=== PATIENT | male | born 1985 | race Caucasian/White ===

== ENCOUNTER → 2017-11-19 | Outpatient (CLI) | payer BC ==
--- NOTE | 2017-11-19 13:17 | US ---
EXAMINATION TYPE: US kidneys/renal and bladder DATE OF EXAM: 11/19/2017 COMPARISON: NONE CLINICAL HISTORY: R31.0 Gross hematuria. gross hematuria almost every month since May 2017 EXAM MEASUREMENTS: Right Kidney: 13.2 x 7.1 x 6.9 cm Left Kidney: 13.0 x 5.4 x 5.9 cm Right Kidney: No hydronephrosis or masses seen Left Kidney: No hydronephrosis or masses seen Bladder: wnl Bilateral Jets seen: yes There is no evidence for hydronephrosis at this point in time. No nephrolithiasis is seen. No aleksandar s are identified. The urinary bladder is anechoic. Bilateral ureteral jets are seen. IMPRESSION: No sonographic evidence of nephrolithiasis or hydronephrosis. Considering the patient's s ymptoms of persistent gross hematuria CT urogram could BE performed.
== END | disposition home or self-care (01) ==
LOC: RADUSWWP 12:03
PROVIDERS: ATTEND Family Medicine
DX: R31.0 Gross hematuria (principal)
CPT/HCPCS: 76770

== ENCOUNTER → 2022-04-10 | Outpatient (CLI) | payer BC ==
--- NOTE | 2022-04-10 13:09 | CT ---
EXAMINATION TYPE: CT urogram wo/w con CT DLP: 4335 mGycm, Automated exposure control for dose reduction was used. DATE OF EXAM: 04/10/2022 12:41 PM COMPARISON: CT abdomen pelvis most recent from CLINICAL INDICATION:Male, 36 years old with history of HEMATURIA R31.0, hematuria TECHNIQUE: Urogram with imaging of the abdomen and pelvis. Coronal and sagittal reformats were performed. 2D and 3D reconstructions are performed to assist visualization of the urinary tract on a separate workstat ion. Contrast used:100 mL of Isovue 300 without and with IV Contrast, Oral contrast used: None. FINDINGS: GENITOURINARY: RIGHT KIDNEY AND URETER: Nonobstructing renal calculi measuring up to 7 mm with 2 smaller calculi als o present. No hydronephrosis or hydroureter. No renal mass or other lesions. No urothelial lesions: n o filling defect, dilation, stricture or wall thickening. LEFT KIDNEY AND URETER: Nonobstructing 7 mm calculus No hydronephrosis or hydroureter. No renal mass or other lesions. No urothelial lesions: no filling defect, dilation, stricture or wall thickening. URINARY BLADDER: Not optimally distended. Limited evaluation secondary to partial filling of the blad cresencio with excreted IV contrast. No calculi or obvious mass. REPRODUCTIVE: Unremarkable. ABDOMEN LIVER: Unremarkable. GALLBLADDER AND BILE DUCTS: Unremarkable PANCREAS: Unremarkable. SPLEEN: Unremarkable. ADRENAL GLANDS: Unremarkable. STOMACH AND BOWEL: . No evidence of bowel obstruction. PERITONEUM: No evidence of pneumoperitoneum, free fluid, or adenopathy. VASCULATURE: No aortic aneurysm. MUSCULOSKELETAL: No acute osseous abnormalities. SOFT TISSUE/ABDOMINAL WALL: Unremarkable. LOWER CHEST: No significant findings. IMPRESSION: 1. No evidence of urolithiasis or renal/urothelial neoplasm. 2. Nonobstructive bilateral renal calculi.
--- NOTE | 2022-04-10 13:16 | US ---
EXAMINATION TYPE: US venous doppler duplex LE LT DATE OF EXAM: 04/10/2022 12:38 PM COMPARISON: NONE CLINICAL HISTORY: R22.40 SWELLING, MASS AND LUMP LOWER LIMB. h/o ACL tear 3 years ago, swelling to le ft leg, no h/o dvt SIDE PERFORMED: Left TECHNIQUE: The lower extremity deep venous system is examined utilizing real time linear array sonog lizet with graded compression, doppler sonography and color-flow sonography. VESSELS IMAGED: Common Femoral Vein Deep Femoral Vein Greater Saphenous Vein * Femoral Vein Popliteal Vein Small Saphenous Vein * Proximal Calf Veins (* superficial vessels) Left Leg: Negative for DVT Grayscale, color doppler, spectral doppler imaging performed of the deep veins of the lower extremiti es. There is normal flow, compressibility, vascular waveforms. IMPRESSION: No evidence of deep vein thrombosis of the left lower extremity.
== END | disposition home or self-care (01) ==
LOC: RADCTMAIN 10:38
PROVIDERS: ATTEND Family Medicine
DX: R31.0 Gross hematuria (principal); R22.40 Localized swelling, mass and lump, unspecified lower limb
CPT/HCPCS: 93971; 74178; 74400; Q9967

== ENCOUNTER 2022-05-14 13:30 | Emergency (ER) | payer BC ==
[2022-05-14 13:42] VITALS: RESP 18; TEMP 98.3
[2022-05-14] MEDS ORDERED: SODIUM CHLORIDE 0.9% 2,000 ML IV STA (13:45)
[2022-05-14 14:49] LABS: Appearance,Urine Clear (Clear); Bilirubin,Urine Negative (Negative); Blood,Urine Negative (Negative); Color,Urine Yellow; Glucose,Urine (UA) Negative (Negative); Ketones,Urine Trace (Negative); Leukocyte Esterase,Urine Trace (Negative); Mucus,Urine Rare /hpf; Nitrite,Urine Negative (Negative); PH, Urine 5.5 (5.0-8.0); Protein,Urine Trace (Negative); RBC,Urine 2 /hpf (0-5); Specific Gravity,Urine 1.023 (1.001-1.035); Urobilinogen,Urine <2.0 mg/dL (<2.0); WBC,Urine 5 /hpf (0-5)
[2022-05-14 14:53] LABS: Basophils # (A) 0.1 k/uL (0-0.2); Basophils % (A) 1 %; Eosinophils # (A) 0.1 k/uL (0-0.7); Eosinophils % (A) 1 %; HCT 45.1 % (39.0-53.0); HGB 16.3 gm/dL (13.0-17.5); Lymphocytes # (A) 1.4 k/uL (1.0-4.8); Lymphocytes % (A) 10 %; MCH 30.1 pg (25.0-35.0); MCHC 36.1 g/dL (31.0-37.0); MCV 83.5 fL (80.0-100.0); Mean Platelet Volume 7.2; Monocytes # (A) 0.7 k/uL (0-1.0); Monocytes % (A) 5 %; Neutrophils # (A) 11.2 k/uL (1.3-7.7); Neutrophils % (A) 82 %; Platelet Count 277 k/uL (150-450); RDW 12.2 % (11.5-15.5); WBC 13.6 k/uL (3.8-10.6)
[2022-05-14 15:07] LABS: ALT 48 U/L (4-49); AST 39 U/L (17-59); African American GFR (CKD) >90 (>60 ml/min/1.73 sqM); Albumin 4.9 g/dL (3.5-5.0); Alkaline Phosphatase 62 U/L (38-126); Amylase 80 U/L (30-110); Anion Gap 14 mmol/L; Blood Urea Nitrogen 15 mg/dL (9-20); Calcium 9.3 mg/dL (8.4-10.2); Carbon Dioxide 20 mmol/L (22-30); Chloride 105 mmol/L (98-107); Glucose 96 mg/dL (74-99); Lipase 208 U/L (23-300); Non-African American GFR(CKD) >90 (>60 ml/min/1.73 sqM); Potassium 3.9 mmol/L (3.5-5.1); Sodium 139 mmol/L (137-145); Total Bilirubin 1.7 mg/dL (0.2-1.3); Total Protein 7.9 g/dL (6.3-8.2)
--- NOTE | 2022-05-14 15:23 | ED ---
Abdominal Pain HPI - General Chief Complaint: Abdominal Pain Stated Complaint: possible bowel obstruction Time Seen by Provider: 05/14/22 13:45 Source: patient, RN notes reviewed Mode of arrival: ambulatory Limitations: no limitations - History of Present Illness Initial Comments: 36-year-old male presents emergency Department chief complaint of abdominal pain. Patient states he was seen at outpatient urgent care and was sent here for further evaluation. Patient states he's had diarrhea for 5 days states she's been having increasing abdominal pain, bloating. Patient was sent here for concern for bowel obstruction. Patient had no prior abdominal surgeries denies any recent antibiotics no recent traveling no contacts with some her symptoms. Patient does admit to nausea without vomiting. He states he has severe loose liquidy stool. Patient has no dysuria no reported fevers. - Related Data Previous Rx's Medication Instructions Recorded Amoxic-Pot Clav 875-125Mg 1 tab PO Q12HR #20 tab 05/14/22 [Augmentin 875-125] Allergies Allergy/AdvReac Type Severity Reaction Status Date / Time No Known Allergies Allergy Verified 05/14/22 14:11 Review of Systems ROS Statement: Those systems with pertinent positive or pertinent negative responses have been documented in the HPI. ROS Other: All systems not noted in ROS Statement are negative. Past Medical History Additional Past Medical History / Comment(s): high liver enzymes, kidney stones, ulcers History of Any Multi-Drug Resistant Organisms: None Reported Past Surgical History: No Surgical Hx Reported Smoking Status: Never smoker Past Alcohol Use History: None Reported Past Drug Use History: None Reported General Exam General appearance: alert, in no apparent distress Head exam: Present: atraumatic, normocephalic, normal inspection Eye exam: Present: normal appearance, PERRL, EOMI. Absent: scleral icterus, conjunctival injection, periorbital swelling Neck exam: Present: normal inspection. Absent: tenderness, meningismus, lymphadenopathy Respiratory exam: Present: normal lung sounds bilaterally. Absent: respiratory distress, wheezes, rales, rhonchi, stridor Cardiovascular Exam: Present: regular rate, normal rhythm, normal heart sounds. Absent: systolic murmur, diastolic murmur, rubs, gallop, clicks GI/Abdominal exam: Present: soft, tenderness, normal bowel sounds. Absent: distended, guarding, rebound, rigid Neurological exam: Present: alert Skin exam: Present: warm, dry, intact, normal color. Absent: rash Course Vital Signs 05/14/22 13:35 Temperature 98.3 F Pulse Rate 97 Respiratory 18 Rate Blood Pressure 123/83 O2 Sat by Pulse 99 Oximetry Medical Decision Making - Medical Decision Making 36-year-old presented for diarrhea, seizures or obstruction patient has colitis type changes patient is well-hydrated, feels improved with IV fluids we discharged in stable condition return parameters were discussed. - Lab Data Result diagrams: 05/14/22 14:50 05/14/22 14:50 Lab Results 05/14/22 05/14/22 05/14/22 Range/Units 14:26 14:50 14:50 WBC 13.6 H (3.8-10.6) k/uL RBC 5.40 (4.30-5.90) m/uL Hgb 16.3 (13.0-17.5) gm/dL Hct 45.1 (39.0-53.0) % MCV 83.5 (80.0-100.0) fL MCH 30.1 (25.0-35.0) pg MCHC 36.1 (31.0-37.0) g/dL RDW 12.2 (11.5-15.5) % Plt Count 277 (150-450) k/uL MPV 7.2 Neutrophils % 82 % Lymphocytes % 10 % Monocytes % 5 % Eosinophils % 1 % Basophils % 1 % Neutrophils # 11.2 H (1.3-7.7) k/uL Lymphocytes # 1.4 (1.0-4.8) k/uL Monocytes # 0.7 (0-1.0) k/uL Eosinophils # 0.1 (0-0.7) k/uL Basophils # 0.1 (0-0.2) k/uL Sodium 139 (137-145) mmol/L Potassium 3.9 (3.5-5.1) mmol/L Chloride 105 (98-107) mmol/L Carbon Dioxide 20 L (22-30) mmol/L Anion Gap 14 mmol/L BUN 15 (9-20) mg/dL Creatinine 1.03 (0.66-1.25) mg/dL Est GFR (CKD-EPI)AfAm >90 (>60 ml/min/1.73 sqM) Est GFR (CKD-EPI)NonAf >90 (>60 ml/min/1.73 sqM) Glucose 96 (74-99) mg/dL Plasma Lactic Acid Addy (0.7-2.0) mmol/L Calcium 9.3 (8.4-10.2) mg/dL Total Bilirubin 1.7 H (0.2-1.3) mg/dL AST 39 (17-59) U/L ALT 48 (4-49) U/L Alkaline Phosphatase 62 (38-126) U/L Total Protein 7.9 (6.3-8.2) g/dL Albumin 4.9 (3.5-5.0) g/dL Amylase 80 (30-110) U/L Lipase 208 (23-300) U/L Urine Color Yellow Urine Appearance Clear (Clear) Urine pH 5.5 (5.0-8.0) Ur Specific [place] 1.023 (1.001-1.035) Urine Protein Trace H (Negative) Urine Glucose (UA) Negative (Negative) Urine Ketones Trace H (Negative) Urine Blood Negative (Negative) Urine Nitrite Negative (Negative) Urine Bilirubin Negative (Negative) Urine Urobilinogen <2.0 (<2.0) mg/dL Ur Leukocyte Esterase Trace H (Negative) Urine RBC 2 (0-5) /hpf Urine WBC 5 (0-5) /hpf Urine Mucus Rare H (None) /hpf 05/14/22 Range/Units 14:50 WBC (3.8-10.6) k/uL RBC (4.30-5.90) m/uL Hgb (13.0-17.5) gm/dL Hct (39.0-53.0) % MCV (80.0-100.0) fL MCH (25.0-35.0) pg MCHC (31.0-37.0) g/dL RDW (11.5-15.5) % Plt Count (150-450) k/uL MPV Neutrophils % % Lymphocytes % % Monocytes % % Eosinophils % % Basophils % % Neutrophils # (1.3-7.7) k/uL Lymphocytes # (1.0-4.8) k/uL Monocytes # (0-1.0) k/uL Eosinophils # (0-0.7) k/uL Basophils # (0-0.2) k/uL Sodium (137-145) mmol/L Potassium (3.5-5.1) mmol/L Chloride (98-107) mmol/L Carbon Dioxide (22-30) mmol/L Anion Gap mmol/L BUN (9-20) mg/dL Creatinine (0.66-1.25) mg/dL Est GFR (CKD-EPI)AfAm (>60 ml/min/1.73 sqM) Est GFR (CKD-EPI)NonAf (>60 ml/min/1.73 sqM) Glucose (74-99) mg/dL Plasma Lactic Acid Addy 1.2 (0.7-2.0) mmol/L Calcium (8.4-10.2) mg/dL Total Bilirubin (0.2-1.3) mg/dL AST (17-59) U/L ALT (4-49) U/L Alkaline Phosphatase (38-126) U/L Total Protein (6.3-8.2) g/dL Albumin (3.5-5.0) g/dL Amylase (30-110) U/L Lipase (23-300) U/L Urine Color Urine Appearance (Clear) Urine pH (5.0-8.0) Ur Specific [place] (1.001-1.035) Urine Protein (Negative) Urine Glucose (UA) (Negative) Urine Ketones (Negative) Urine Blood (Negative) Urine Nitrite (Negative) Urine Bilirubin (Negative) Urine Urobilinogen (<2.0) mg/dL Ur Leukocyte Esterase (Negative) Urine RBC (0-5) /hpf Urine WBC (0-5) /hpf Urine Mucus (None) /hpf Disposition Clinical Impression: Colitis Disposition: HOME SELF-CARE Condition: Stable Instructions (If sedation given, give patient instructions): Colitis (ED) Additional Instructions: Please return to the Emergency Department if symptoms worsen or any other concerns. Prescriptions: Amoxic-Pot Clav 875-125Mg [Augmentin 875-125] 1 tab PO Q12HR #20 tab Is patient prescribed a controlled substance at d/c from ED?: No Referrals: Manolo Schmidt DO [Primary Care Provider] - 1-2 days Time of Disposition: 15:40
--- NOTE | 2022-05-14 15:27 | CT ---
EXAMINATION TYPE: CT abdomen pelvis w con DATE OF EXAM: 05/14/2022 COMPARISON: CT urogram April 10, 2022 HISTORY: lower pelvic pain, possible bowel blockage CT DLP: 2021.1 mGycm, Automated Exposure Control for Dose Reduction was Utilized. CONTRAST: CT scan of the abdomen and pelvis is performed without oral and with IV Contrast, patient injected wi th 100 mL of Isovue 300. FINDINGS: LUNG BASES: No significant abnormality is appreciated. LIVER/GB: No significant abnormality is appreciated. PANCREAS: No significant abnormality is seen. SPLEEN: No significant abnormality is seen. ADRENALS: No significant abnormality is seen. KIDNEYS: Stable 7 mm nonobstructing calculus lower pole right kidney axial image 59. Stable 2 to 3 mm calculus midpole right kidney axial image 53. Stable 8 mm calculus lower pole level left kidney axia l image 59. There is symmetric cortical uptake and excretion without hydronephrosis seen bilaterally. BOWEL: Suboptimal evaluation of bowel without enteric contrast. No suspicious small or large bowel d ilatation. Some fluid throughout the colon is present greatest in the right colon. Findings could ref lect product of a mild colitis and/or diarrhea. Terminal ileum appears within normal limited coronal image 48. Stomach poorly distended and thus suboptimally evaluated. PROSTATE/SEMINAL VESICLES: No gross abnormality seen. LYMPH NODES: No greater than 1cm abdominal or pelvic lymph nodes are appreciated. Some prominent but subcentimeter lymph nodes throughout the mesentery are redemonstrated. OSSEOUS STRUCTURES: Oagn-gs-mekxnhgs disc space narrowing and vacuum disc phenomenon L3-L4 and L5-S1 levels. OTHER: No significant additional abnormality is seen. IMPRESSION: Possible mild uncomplicated colitis and/or diarrhea. No bowel obstruction. Otherwise no n ew or acute findings are evident.
[2022-05-14 15:56] VITALS: BP 122/75; PULSE 89
== END 2022-05-14 15:56 | disposition home or self-care (01) ==
LOC: EC 13:30
DX: K52.9 Noninfective gastroenteritis and colitis, unspecified (principal)
CPT/HCPCS: 36415; 80053; 82150; 83605; 83690; 85025; 81001; 87324; 74177; 99284; 96360; Q9967

== ENCOUNTER → 2022-06-09 | Outpatient (CLI) | payer BC ==
[2022-06-09 15:31] LABS: Basophils # (A) 0.08 X 10*3/uL (0.00-0.10); Basophils % (A) 1.1 %; Eosinophils # (A) 0.23 X 10*3/uL (0.04-0.35); Eosinophils % (A) 3.1 %; HCT 44.7 % (39.6-50.0); HGB 15.1 g/dL (13.0-17.0); Immature Grans, Automated 0.3 %; Lymphocytes # (A) 2.64 X 10*3/uL (0.90-5.00); MCH 29.5 pg (27.0-32.0); MCHC 33.8 g/dL (32.0-37.0); MCV 87.3 fL (80.0-97.0); Mean Platelet Volume 9.6 fL (9.5-12.2); Monocytes # (A) 0.58 X 10*3/uL (0.20-1.00); Monocytes % (A) 7.9 %; NRBC Per 100 WBC 0 /100 WBCS (0.0-0.0); Neutrophils # (A) 3.79 X 10*3/uL (1.80-7.70); Neutrophils % (A) 51.6 %; Platelet Count 279 X 10*3/uL (140-440); RBC 5.12 X 10*6/uL (4.40-5.60); WBC 7.34 X 10*3/uL (4.50-10.00)
[2022-06-09 15:42] LABS: Appearance,Urine Clear (Clear); Bilirubin,Urine Negative (Negative); Blood,Urine Negative (Negative); Color,Urine Yellow (Yellow); Ketones,Urine Negative (Negative); Nitrite,Urine Negative (Negative); PH, Urine 5.5 (5.0-8.0); Specific Gravity,Urine 1.022 (1.001-1.030); Urobilinogen,Urine 0.2 (0.2,1.0)
[2022-06-09 16:23] LABS: African American GFR (CKD) 111.7 (60.0-200.0); Anion Gap 15.8 mmol/L (10.00-18.00); BUN/Creat Ratio 14.5 Ratio (12.00-20.00); Blood Urea Nitrogen 14.5 mg/dL (9.0-27.0); Calcium 9.8 mg/dL (8.7-10.3); Carbon Dioxide 26.2 mmol/L (20.0-27.5); Non-African American GFR(CKD) 96.4 (60.0-200.0)
== END | disposition home or self-care (01) ==
LOC: LABPAT 08:41
PROVIDERS: ATTEND Urology
DX: Z01.818 Encounter for other preprocedural examination (principal); Z01.812 Encounter for preprocedural laboratory examination; N20.0 Calculus of kidney
CPT/HCPCS: 36415; 80048; 81003; 85025; 87086

== ENCOUNTER 2022-06-13 09:33 | Day surgery (SDC) | payer BC ==
[2022-06-10 15:15] VITALS: BMI 35.9
--- NOTE | 2022-06-13 07:51 | P.HPIHPCON ---
History of Present Illness H&P Date: 06/13/22 Chief Complaint: bilateral renal stone this is a 36 yo male with hx of bilateral renal stone, he underwent a CT that showed evidence of a 7 mm right-sided lower pole stone, an 8 mm left-sided lower pole stone. He is symptomatic from his stone, and is having recurrent gross hematuria. Discussed with him the option of doing a cystoscopy with bilateral ureteroscopy with holmium laser in the OR to assess for his gross hematuria and address his stones. Discussed with him the risk of surgery which includes but not limited to bleeding, infection, injury to the ureter. Discussed also risk from anesthesia. Discussed also been given the lower pole location it might be difficult to remove stones. He understood all the risk and agreed to proceed with a bilateral ureteroscopy, with holmium laser lithotripsy, stone basketing and stent insertion Consent for Procedure: I have explained the operation/procedure to the patient, including the risks, benefits, side effects, alternative therapies (including not receiving the proposed treatment or service), the likelihood of the patient achieving his/her goals, and potential recuperation problems for the procedure/sedation/analgesia, as well as any blood products, if indicated. I also explained to the patient the risks, benefits and side effects of the alternatives, as well as the risks related to not receiving the proposed procedure, care, treatment, or services. Past Medical History Additional Past Medical History / Comment(s): high liver enzymes, kidney stones, ulcers History of Any Multi-Drug Resistant Organisms: None Reported Past Surgical History: No Surgical Hx Reported Additional Past Surgical History / Comment(s): surgical repair of lip,wisdom teeth Past Anesthesia/Blood Transfusion Reactions: No Reported Reaction Additional Past Anesthesia/Blood Transfusion Reaction / Comment(s): no hx blood transfusion Smoking Status: Never smoker - Past Family History Mother Family Medical History: Cancer Additional Family Medical History / Comment(s): lupus,female ca Medications and Allergies Home Medications Medication Instructions Recorded Confirmed Type Acetaminophen [Tylenol Extra 500 - 1,000 mg PO Q6H PRN 06/10/22 06/10/22 History Strength] Ibuprofen [Motrin Ib] 200 mg PO Q8H PRN 06/10/22 06/10/22 History Melatonin 5 mg PO HS 06/10/22 06/10/22 History Allergies Allergy/AdvReac Type Severity Reaction Status Date / Time No Known Allergies Allergy Verified 06/10/22 15:08 Surgical - Exam - General no distress, moderate pain - Eyes no normal ocular movement, no pale - ENT normal nares, normal mucosa - Respiratory normal expansion, normal respiratory effort - Abdomen Abdomen: soft, non tender - Psychiatric oriented to time, oriented to person, oriented to place Assessment and Plan Assessment: OR for bilateral ureteroscopy, holmium laser lithotripsy, stone basketing and stent insertion
[~2022-06-13 09:33] MED LIST: DEXAMETHASONE SOD PHOSPHATE 4 MG/ML 1 ML VIAL IV ONE; HYDROmorphone 0.5 MG/0.5 ML SYRINGE IVP PRN; LACTATED RINGERS 1,000 ML IV SCH; ONDANSETRON 4 MG/2 ML VIAL IVP ONE; ceFAZolin 3 GM in SODIUM CHLORIDE 0.9% 100 ML IVPB PRN
--- NOTE | 2022-06-13 10:07 | XR ---
EXAMINATION TYPE: XR KUB DATE OF EXAM: 06/13/2022 9:43 AM INDICATION: Patient age:Male; 36 years old; Reason for study: kidney stones; [facility]. COMPARISON: CT 05/14/2022 TECHNIQUE: One radiographic view of the abdomen was obtained. FINDINGS: Calcifications project over the right kidney measuring up to 6 mm and over the left kidney measuring up to 5.5 mm. There is a nonspecific bowel gas pattern. Osseous structures appear intact. IMPRESSION: Bilateral renal calculi. Similar to prior CT 05/14/2022
[2022-06-13] MEDS ORDERED: MIDAZOLAM 2 MG/2 ML VIAL ONE (13:36)
[2022-06-13] MEDS ORDERED: SUCCINYLCHOLINE CHLORIDE 200 MG/10 ML VIAL IV ONE (13:36)
[2022-06-13] MEDS ORDERED: LIDOCAINE 2% INJ 20 MG/ML (2 ML VIAL) ONE (13:36)
[2022-06-13] MEDS ORDERED: fentaNYL (PF) 50 MCG/ML 2 ML AMP ONE (13:36)
[2022-06-13] MEDS ORDERED: PROPOFOL 10 MG/ML 20 ML VIAL IV ONE (13:36)
[2022-06-13] MEDS ORDERED: LACTATED RINGERS 1,000 ML IV ONE (14:08)
--- NOTE | 2022-06-13 15:02 | P.OP ---
Date of Procedure: 06/13/22 Preoperative Diagnosis: Bilateral renal stones Postoperative Diagnosis: Same Procedure(s) Performed: Cystoscopy, bilateral ureteroscopy, holmium laser lithotripsy, stone basketing and stent insertion Implants: 6-Greek by 28 cm stent bilaterally both left on a string Anesthesia: BALA Surgeon: Martin Todd Estimated Blood Loss (ml): 20 Pathology: other (bilateral renal stone) Condition: stable Indications for Procedure: this is a 36 yo male with hx of bilateral renal stone, he underwent a CT that showed evidence of a 7 mm right-sided lower pole stone, an 8 mm left-sided lower pole stone. He is symptomatic from his stone, and is having recurrent gross hematuria. Discussed with him the option of doing a cystoscopy with bilateral ureteroscopy with holmium laser in the OR to assess for his gross hematuria and address his stones. Discussed with him the risk of surgery which includes but not limited to bleeding, infection, injury to the ureter. Discussed also risk from anesthesia. Discussed also been given the lower pole location it might be difficult to remove stones. He understood all the risk and agreed to proceed with a bilateral ureteroscopy, with holmium laser lithotripsy, stone basketing and stent insertion Operative Findings: Bilateral renal stones, 2 stones in the right kidney, and one additional stone on the left Description of Procedure: Patient brought to the operating room, general anesthesia was induced. He was prepped and draped in sterile fashion and placed in a dorsal lithotomy position. Cystoscopy fitted with 21-Greek sheath was inserted per urethra, cystoscopy was performed of the bladder which showed no abnormality within the bladder. There was no suspicious lesions to account for the patient's hematuria. There was clear effluxed from both ureteral orifice ease. This time attention was then carried to the right ureteral orifice which was intubated with a sensor wire. Next a wire was advanced under fluoroscopy into the kidney. Next under fluoroscopy 1113 Greek access sheath was passed over the wire and into the proximal ureter. Next a flexible ureteroscope was inserted through the access sheath, renoscopy was performed which showed 2 large stones within the kidney one in the mid pole and additional one in the lower pole. Using the holmium lasers the stone were dusted, sizable fragments were removed using the stone basket. Repeat renoscopy showed no sizable fragments within the kidney or injury to the kidney. Pullback ureteroscopy was performed which showed no injury to the ureter or any ureteral stones, as ureteroscope was withdrawn, a sensor wire was advanced through. Next a ureteral stent was passed over the wire, the proximal curl was visualized on fluoroscopy and distal cural was visualized using the cystoscope. The stent was left on a string. Attention was then carried to the left side ureteral orfice which was intubated with a sensor wire. Next under fluoroscopy an 1113 Greek access sheath was passed over the wire and into the proximal ureter. Next a flexible ureteroscope was inserted through the access sheath, renoscopy was performed which showed a large stone within the lower pole. Using the stone basket the stone was repositioned into the upper pole. Using the holmium laser the stone was dusted. Sizable fragments were removed and sent for analysis. Repeat renoscopy showed no evidence of sizable fragments within the kidney or abnormality or injury to the kidney. Pullback ureteroscopy was performed showed no injury to the ureter or any ureteral stones, as the ureteroscope was withdrawn,a sensor wire was adva nced through. Next a 6-Greek by 28 cm ureteral stent was passed over the wire and into the kidney. The proximal curl was visualized on fluoroscopy and the distal curl was visualized using the cystoscope. The bladder was emptied at the end of the case. The left stent was also left on a string, the strings of the stent were taped to the patient penis. Patient awakened from anesthesia and taken to recovery in stable condition
[2022-06-13 15:03] VITALS: TEMP 98.5
[2022-06-13] MEDS ORDERED: KETOROLAC 15 MG/ML 1 ML VIAL IVP ONE (15:19)
[2022-06-13 15:34] VITALS: RESP 18
[2022-06-13 15:48] VITALS: BP 145/87; PULSE 87
--- NOTE | 2022-06-15 22:39 | FL ---
EXAMINATION TYPE: FL guidance operating room DATE OF EXAM: 06/13/2022 CLINICAL HISTORY: Bilateral kidney stones. TECHNIQUE: Fluoroscopy. COMPARISON: Same-day abdominal x-ray. FINDINGS: Fluoroscopic guidance was provided during kidney stone treatment procedure performed by Dr Zainab Wise. A total of 47 seconds of fluoroscopic time was utilized during the procedure and 3 spot im ages was acquired. Please refer to procedure note for further details. IMPRESSION: As Above.
== END 2022-06-13 16:15 | disposition home or self-care (01) ==
LOC: OR 09:33
PROVIDERS: ATTEND Urology
DX: N20.0 Calculus of kidney (principal); R94.5 Abnormal results of liver function studies; K27.9 Peptic ulcer, site unspecified, unspecified as acute or chronic, without hemorrhage or perforation; Z98.890 Other specified postprocedural states; Z79.899 Other long term (current) drug therapy; Z84.89 Family history of other specified conditions
CPT/HCPCS: 52356; 82365; 74018; C2625; C1769 ×2; J2250; J0330; J1100; J0690; J2405; J3010; J1885; J2704; J2001